=== PATIENT | female | born 1990 | race Caucasian/White ===

== ENCOUNTER 2017-08-15 04:43 | Inpatient (IN) | payer OTHER ==
[~2017-08-15] VITALS: Ht 157.5 cm; Wt 94.0 kg
[~2017-08-15 04:43] MED LIST: DOXYCYCLINE HY100 MG PO; EXPECTA PRENAT1 EACH PO; IBUPROFEN800 MG PO; PERCOCET 5-3251 EACH PO
--- NOTE | 2017-08-15 07:01 | NUR ---
08/15/17 0701 Dasia Bernstein REPORT FROM JUVENILE JUSTICE SPECIALIST.
--- NOTE | 2017-08-16 11:28 | PR ---
[facility] [address] [facility] [place] [address] Signed PP Progress Notes Datetime Report Generated by CPN: 08/16/2017 11:28 SUBJECTIVE: [id number] Pain: Within normal limits Nausea/Vomiting: Denies Vital Signs: [id number] Vital Signs: Reviewed; Within Normal Limits EXAM: [id number] Abdomen/Uterus: Normal Lochia: Normal Extremities: Normal Incision: Normal IMPRESSION/PLAN/PROCEDURES: [id number] Impression: Normal progression Plan: Continue present management Procedures: None Progress Notes: Doing well, moving slowly but up walking in zelaya, tolerating food well. Signing Physician: Iván De La Rosa MD CC: *Electronically Signed* 08/16/17 1128 IVÁN DE LA ROSA MD PATIENT NAME: RASHEED REYNOLDS PROGRESS NOTE DATE OF : [birth year] PHYSICIAN: IVÁN DE LA ROSA MD RPT #: [id number] REPORT IS CONFIDENTIAL AND NOT TO BE RELEASED WITHOUT AUTHORIZATION
== END 2017-08-17 12:50 | disposition home or self-care (01) | DRG 766 ==
LOC: FBCO 04:43 → FBC 05:12
PROVIDERS: ADMIT Obstetrics & Gynecology
PROC: 0UB70ZZ Excision of Bilateral Fallopian Tubes, Open Approach (ICD-10-PCS; 2017-08-15)
PROC: 10D00Z1 Extraction of Products of Conception, Low, Open Approach (ICD-10-PCS; principal; 2017-08-15 05:44)
DX: O34.211 Maternal care for low transverse scar from previous cesarean delivery (principal); Z3A.37 37 weeks gestation of pregnancy; Z37.0 Single live birth; Z30.2 Encounter for sterilization
CPT/HCPCS: 01961; 36415; 83030; 85027; 86850; 86900; 86901; C1763; J0690; J1885; J2274; J2300; J2405; J2550; J2590; J2790; J3010; J7120

== ENCOUNTER 2019-04-14 05:40 | Day surgery (SDC) | payer OTHER ==
[~2019-04-14] VITALS: Ht 157.5 cm; Wt 87.1 kg
--- NOTE | ~2019-04-14 | OR ---
[facility] [address] [place], [place] [address] Draft DATE OF OPERATION: 04/14/2019 SURGEON: Jesi Quarles MD HYDROMETALLURGICAL ENGINEER: Anthony Maxwell MD PREOPERATIVE DIAGNOSES: Pelvic pain, dysmenorrhea and menorrhagia. POSTOPERATIVE DIAGNOSIS: Pelvic pain, dysmenorrhea and menorrhagia with pelvic and abdominal adhesions. PROCEDURES PERFORMED: Total laparoscopic hysterectomy, bilateral salpingectomy, and lysis of adhesions. ANESTHESIA: General ET. ESTIMATED BLOOD LOSS: 100 mL. DRAINS: Ware catheter. INDICATIONS AND FINDINGS: The patient is a 28-year-old female, 4, para 4, status post prior C-sections, who is having increasing issues with menorrhagia, pelvic pain, and dysmenorrhea. The patient has not done well on hormone treatment in the past and requested hysterectomy for treatment of her issues. At the time of surgery, exam under anesthesia revealed a normal-size uterus. There were no adnexal masses. On laparoscopy, there were severe adhesions of the omentum to the anterior abdominal wall as well as the adhesions of the bladder to the anterior cervix. The ovaries appeared normal. She did have evidence of prior tubal ligation. DESCRIPTION OF PROCEDURE: The patient was prepped and draped in the dorsal lithotomy position. A weighted speculum was placed and the anterior lip of the cervix was visualized and grasped with a single-tooth tenaculum. The cavity sounded to 9 cm. The endocervical canal was then dilated and the VCare cannula was placed and the balloon inflated at the fundus. The PATIENT NAME: RASHEED REYNOLDS OPERATIVE REPORT DATE OF : [birth year] REPORT #: [id number] PHYSICIAN: JESI QUARLES MD PCP: RAY WILLIS PAC REPORT IS CONFIDENTIAL AND NOT TO BE RELEASED WITHOUT AUTHORIZATION [facility] [address] [place], [place] [address] Draft tenaculum and speculum were removed and the cup was fitted over the cervix and a locking cap fitted into place as well. Attention was then directed above. The infraumbilical area was injected with 0.5% Marcaine plain. An incision was made with a knife. Each layer was then serially elevated, incised until the fascia was opened and identified. Stay sutures were placed on the fascia. The peritoneum was opened bluntly. The Neeta cannula was then placed and balloon inflated. Placement of the scope confirmed proper positioning. It was immediately apparent that there were significant omental adhesions, particularly on the patient's left side. After inflating the abdomen, it was possible to sweep some of the adhesions toward the center and a clear area was noted on the patient's left side. This area was slightly below the umbilicus far lateral. This area was transilluminated and injected with Marcaine. Incision was made with a knife and a 5 mm port placed under direct vision. The same procedure was carried out on the patient's right side. There were no adhesions noted, however, on this side. This area was transilluminated and injected with Marcaine. Incision was made with a knife. The Veress needle was placed followed by the expanding port. The adhesions were evaluated and it was essential that these be taken down before proceeding with a hysterectomy. Because of the location, a 4th port was placed in the left upper quadrant. This area was again transilluminated and injected with the Marcaine. Incision was made with a knife and the trocar placed under direct vision. This allowed the adhesions to be taken down off the anterior abdominal wall using the LigaSure Maryland device. Following this, the procedure planned could be completed. At this point, the Maryland device was used to serially coagulate and divide the mesosalpinx on the patient's left side. The specimen was removed through the expanding port. Following this, the round ligament as well as the utero-ovarian pedicles were serially coagulated and divided. There were significant adhesions anteriorly and these were taken down gingerly, fairly high on the uterus, but this allowed for creation of a partial bladder flap on the patient's left side. The peritoneum was taken down posteriorly as well. At this point, the uterine vessels could be isolated and were coagulated multiple times and divided. A little bit more dissection was done anteriorly and posteriorly and then attention was directed to the patient's right side. Again, the mesosalpinx was serially coagulated and divided and specimen excised. The patient's round ligament and utero-ovarian pedicle were serially coagulated and divided as well. There was less scarring on the patient's right side. The anterior bladder flap area was created with serially coagulating and dividing this area. This allowed the bladder to drop off the cervix anteriorly. The perineum was taken down posteriorly as well. The uterine vessels were then serially coagulated and divided. Following this, further dissection was done both posteriorly and anteriorly and attention redirected to the patient's left side. Further dissection was done both anteriorly and posteriorly and at this point, the cup could be identified circumferentially. The Sonicision device was then used to remove the specimen from the cuff. It was started posteriorly and dropped around anteriorly to the left and again posteriorly and anteriorly to the right. Following this, the specimen was grasped and the specimens removed as a whole through the vaginal opening. Following this, the PATIENT NAME: RASHEED REYNOLDS OPERATIVE REPORT DATE OF : [birth year] REPORT #: [id number] PHYSICIAN: JESI QUARLES MD PCP: RAY WILLIS PAC REPORT IS CONFIDENTIAL AND NOT TO BE RELEASED WITHOUT AUTHORIZATION [facility] [address] [place], [place] [address] Draft vaginal canal was packed with a glove with a wet lap inside. This allowed for re-creation of the pneumoperitoneum. The pelvis was irrigated and there were few bleeding points posteriorly at the cuff as well as over the surface of the bladder. The spatula tip was used to gently coagulate the bleeders over the bladder flap area. The Maryland device was used to coagulate the posterior cuff. Following this, it was felt that there was good hemostasis and the procedure could be continued. The Endo stitch was then used to close the vaginal cuff. It was begun from the patient's right uterosacral ligament, taking care to incorporate the vaginal mucosa both anteriorly and posteriorly and this was run across to the patient's left uterosacral ligament and then back to the center. Following this, the pelvis was again evaluated and hemostasis was noted. There was some bleeding along the anterior abdominal wall where the omental adhesions were taken down. These were serially coagulated as well. Given the extent of the raw areas, Evicel was used to dribble over the vaginal cuff and the defects on the sidewalls to further aid in hemostasis. The instruments were then removed from the abdomen after allowing as much CO2 as possible to escape. The fascial incision of the umbilicus was reidentified and closed with a running suture of 0 Vicryl. The skin incisions were closed with subcuticular sutures of 3-0 Vicryl Rapide. Attention was directed down below and the vaginal pack was removed. The Ware catheter was removed and cystoscopy was done. The patient had received IV fluorescein. The bladder was thoroughly interrogated. There was no evidence of any injury or sutures present. Both ureteral orifices were identified and clear urine was seen to freely egress from both of these. Following this, the bladder was drained and the Ware catheter replaced. All sponge and needle counts were correct. She tolerated the procedure well and was taken to the recovery room in good condition. MD JOSE Lewis/MODL /[id number] cc: ARIE Inman Copies: VANESA DEXTER PATIENT NAME: RASHEED REYNOLDS OPERATIVE REPORT DATE OF : [birth year] REPORT #: [id number] PHYSICIAN: JESI QUARLES MD PCP: RAY WILLIS [facility] REPORT IS CONFIDENTIAL AND NOT TO BE RELEASED WITHOUT AUTHORIZATION [facility] [address] [place] [address] [place] [address] Draft ~ PATIENT NAME: RASHEED REYNOLDS VICKIE OPERATIVE REPORT DATE OF : [birth year] REPORT #: [id number] PHYSICIAN: JESI QUARLES MD PCP: RAY WILLIS PAC REPORT IS CONFIDENTIAL AND NOT TO BE RELEASED WITHOUT AUTHORIZATION
[~2019-04-14 05:40] MED LIST changes: +MULTIVITAMINS1 EAC8 PO
--- NOTE | 2019-04-14 10:20 | NUR ---
04/14/19 1020 Sheets,Catalina 1012 PT ARRIVED TO PACU ON 6L VIA AMSK, ORAL AIRWAY IN PLACE, CHIN LIFT NEEDED OFF AND ON TO MAINTAIN AIRWAY. RESP EVEN AND UNLABORED. 1015 ORAL AIRWAY REMAINS IN PLACE AND NO CHIN LIFT NEEDED TO MAINTAIN AIRWAY. PT NONAROUSABLE TO PAINFUL STIMULI.
--- NOTE | 2019-04-14 11:05 | NUR ---
PT IS BACK TO FROM PACU. SHE HAS HER EYES CLOSED, BUT WILL ANSWER QUESTIONS APPROPRIATELY. SHE IS REPORTING CRAMPING, RATING IT 9/10 AT THIS TIME. PT'S MOM IS AT THE BEDSIDE. CALL LIGHT WITHIN REACH. SHE TOLERATES A SIP OF WATER. NO ADDITIONAL NEEDS AT THIS TIME.
--- NOTE | 2019-04-14 12:07 | NUR ---
PT REPORTS THAT HER PAIN HAS IMPROVED A LITTLE BIT, SHE ISN'T NAUSEOUS. SHE STATES THAT SHE IS A LITTLE LIGHTHEADED, BUT NOT DIZZY. MOM IS STILL AT THE BEDSIDE. CALL LIGHT WITHIN REACH. NO ADDITIONAL NEEDS AT THIS TIME. WILL COINTUE TO MONITOR.
--- NOTE | 2019-04-14 13:45 | NUR ---
PT AND HER MOM WOULD LIKE TO KNOW WHAT THEY HAVE TO DO TO GET OUT OF HERE. SINCE THE PT IS MORE AWAKE, HER DE ANDA IS REMOVED. 10CC'S OF NS IS REMOVED FROM THE DE ANDA BALLOON. THE DE ANDA IS DC'D WITHOUT ISSUES. THERE IS 400ML'S OF YELLOW URINE IN THE BAG. THE PT ASKS TO GET UP TO USE THE RESTROOM. IT IS RECOMMENDED THAT SHE WAIT FOR AT LEAST A HALF TO ALLOW TIME FOR HER BLADDER TO ACCUMULATE URINE. CALL LIGHT IS WITHIN REACH. NO ADDITIONAL NEEDS AT THIS TIME. WILL CONTINUE TO MONITOR.
--- NOTE | 2019-04-14 14:16 | NUR ---
PT IS HELPED UP OOB TO THE BATHROOM WHERE SHE IS ABLE TO VOID APPROXIMATELY 50MLS OF BLOODY YELLOW URINE. SHE IS EDUCATED THAT IT ISN'T ENOUGH TO MEET DC CRITERIA. SHE WOULD LIKE TO STAY IN THE RESTROOM TO TRY AND HAVE A BM. SHE IS INSTRUCTED TO PULL THE WHITE CORD IF SHE NEEDS ANYTHING.
--- NOTE | 2019-04-14 15:23 | NUR ---
PT RESTING IN BED-ALERT, ORIENTED AND SUPPORTED BY HER MOM CHARU. PT IS SOMEWHAT, ANXIOUS, REQUESTED PRAYER, WILL CONTINUE TO FOLLOW NEEEED
--- NOTE | 2019-04-14 15:29 | NUR ---
1500: PT WOULD LIKE TO GET UP AND USE THE RESTROOM. SHE IS ABLE TO VOID 100MLS OF YELLOW URINE. SHE HAS MET DC CRITERIA AND WOULD LIKE TO GO HOME. SHE IS EDUCATED ON HOW BEST TO DRESS HERSELF AND TO OPEN HER CURTAIN WHEN SHE IS READY. PT AND HER MOM ARE GIVEN VERBAL DC INSTRUCTIONS, THEY BOTH VERBALIZE UNDERSTANDING. PT IS TAKEN TO THE VEHICLE VIA WC WHERE SHE IS ABLE TO TRANSFER HERSELF.
== END 2019-04-14 15:22 | disposition home or self-care (01) ==
LOC: DS 05:40
PROVIDERS: Obstetrics & Gynecology
PROC: 0UT94ZZ Resection of Uterus, Percutaneous Endoscopic Approach (ICD-10-PCS; principal; 2019-04-14 06:45)
PROC: 0UT74ZZ Resection of Bilateral Fallopian Tubes, Percutaneous Endoscopic Approach (ICD-10-PCS; 2019-04-14 06:45)
DX: N87.9 Dysplasia of cervix uteri, unspecified (principal); N88.8 Other specified noninflammatory disorders of cervix uteri; N83.8 Other noninflammatory disorders of ovary, fallopian tube and broad ligament; K66.0 Peritoneal adhesions (postprocedural) (postinfection); N92.1 Excessive and frequent menstruation with irregular cycle; N94.5 Secondary dysmenorrhea; K21.9 Gastro-esophageal reflux disease without esophagitis; Z88.5 Allergy status to narcotic agent; Z91.040 Latex allergy status; Z98.51 Tubal ligation status
CPT/HCPCS: 00840; J1100; J1644; J1885; J2250; J2270; J2405; J2704; J2765; J3475; J7060; J7120

== ENCOUNTER 2023-05-29 05:40 | Day surgery (SDC) | payer OTHER ==
[2023-05-28 14:16] VITALS: BP 112/75
[~2023-05-29] VITALS: Ht 157.5 cm; Wt 90.9 kg
--- NOTE | ~2023-05-29 | OR ---
[facility] [address] [facility] [place], [place] [address] Draft DATE OF OPERATION: 05/29/2023 SURGEON: Aki Xie MD PREOPERATIVE DIAGNOSES: 1. Nasal obstruction. 2. Deviated septum. 3. Turbinate hypertrophy. 4. Snoring. 5. Possible adenoid hypertrophy. POSTOPERATIVE DIAGNOSES: 1. Nasal obstruction. 2. Deviated septum. 3. Turbinate hypertrophy. 4. Snoring. 5. Normal hypertrophy or atrophy of adenoids, but spur or deviation of the septum, left side and turbinate hypertrophy and snoring. PROCEDURES: 1. Nasal septoplasty, [address]. 2. Bilateral submucous resection of inferior turbinates, 81737-93. INDICATIONS: This 32-year-old female has noticed difficulty breathing more at night and seems to have obstruction even up and around during the day and it progresses. She has tried decongestants and nasal steroids and topical decongestants with no real assistance specially alarm she might have the large adenoids, her brother had such a diagnosis made and there is some indication that she may be getting apneic at night, but no formal sleep studies been done. DESCRIPTION OF PROCEDURE: The patient was placed under general anesthesia with an endotracheal intubation. The McIvor mouth gag was inserted first half to open the oral cavity with some retraction done down at the level of tongue, it is obvious that the source of obstruction is the junction between her tonsils, soft palate, uvula, and tongue that was the nasopharyngeal inlet was tightly sealed. Retracting that with looking up above the adenoid tissue was atrophied as it should be at age 32, no need to remove anything, it was not in any way obstructing the airway, so attention was then directed to the septum and the turbinates. The patient has generally PATIENT NAME: RASHEED REYNOLDS OPERATIVE REPORT DATE OF : [birth year] REPORT #: [id number] PHYSICIAN: AKI XIE MD PCP: REBECCA CERDA REPORT IS CONFIDENTIAL AND NOT TO BE RELEASED WITHOUT AUTHORIZATION [facility] [address] [place], [place] [address] Draft small nostrils, small airway on both sides. Significant bony spur on the left side and relative turbinate hypertrophy because of the generalized narrow airway and so around the septal spur on the left side, it was injected with a few mL of 1% lidocaine with 1:200,000 epinephrine. Incision was made and then careful submucoperichondrial and submucoperiosteal dissection was done over that spur both inferiorly and superiorly. that from the cartilage with the sharp end of the Natalie dissection tool, the osteotome was that had a little angulation was used to cut the bony spur down on that nasal septal or maxillary spur that carefully, so it would not tear the mucosa on the underside that was removed back to straighter, plane off airway and the nose flaps were based down with 4-0 chromic. The rest of the obstruction was nasal turbinates. Stab incisions were made anteriorly and the mucoperiosteum was lifted from the turbinate bone medially and laterally with the sharp Natalie dissection tool and broken little pieces, removed from the airway to help lateralize that turbinate on either side. The patient bled profusely during the procedure, but clotted nicely afterwards. Some Telfa was rolled up into cigarette style packs and put into each nostril and then were removed in the recovery room. Estimated blood loss was about 30 mL. No complications were encountered. The patient did well. Aki Xie MD [facility] /[id number] Copies: ~ PATIENT NAME: RASHEED REYNOLDS OPERATIVE REPORT DATE OF : [birth year] REPORT #: [id number] PHYSICIAN: AKI XIE MD PCP: REBECCA CERDA REPORT IS CONFIDENTIAL AND NOT TO BE RELEASED WITHOUT AUTHORIZATION
[~2023-05-29 05:40] MED LIST changes: +BUSPIRONE HCL10 MG PO; +TRAMADOL HCL50 MG PO
[2023-05-29 06:05] VITALS: BP 107/68
[2023-05-29] MEDS ORDERED: CEPHALEXIN500 MG PO (06:11)
--- NOTE | 2023-05-29 07:16 | NUR ---
PT ACCOMPANIED BY SISTER SON AND SON BLANCO. DECLINED PRAYER. GAVE PAGER 11 TO SISTER.
--- NOTE | 2023-05-29 09:07 | NUR ---
05/29/23 0907 Catalina Ibrahim 0849 PT ARRIVED TO PACU ON 6L VIA MASK, RESP EVEN AND UNLABORED. SMALL AMOUNT OF SNORING NOTED. 0850 MD AT BEDSIDE AND PULLED DRESSING FROM NOSTRILS WITH SOME CLOTS NOTED. DRIP PAD REMAINS IN PLACE AND NO DRAINAGE NOTED ON PAD. PT REACTIVE TO TACTILE STIMULI. 0901 PT WAKES AND ABLE TO FOLLOW COMMANDS TO MOVE UP IN BED AND O2 REMOVED. PT NODS "YES" TO PAIN AND THEN EASILY FALLS RIGHT BACK TO SLEEP. 0906 PT WAKES AND RATES PAIN 7/10.
[2023-05-29 09:43] VITALS: BP 101/58
--- NOTE | 2023-05-29 09:55 | NUR ---
LE 0945: PT IS BACK TO DS FROM PACU. SHE IS DROWSY, BUT EASILY AROUSABLE. SHE IS GIVEN WATER AND JELLO. SHE DENIES PAIN AT THIS TIME. SISTER AND SON ARE AT THE BEDSIDE. CALL LIGHT WITHIN REACH. NO ADDITIONAL NEEDS OR CONCERNS AT THIS TIME. DC CRITERIA IS REVIEWED.
--- NOTE | 2023-05-29 10:21 | NUR ---
WAQAS 1015: PT IS ASSISTED UP OOB TO USE THE BATHROOM. SHE IS ABLE TO VOID 100MLS. SHE AMBULATES HERSELF TO AND FROM HER ROOM. SHE WOULD LIKE TO PUT HER OWN CLOTHES ON, SHE IS EDUCATED ON HOW TO BEST DO THAT HERSELF.
--- NOTE | 2023-05-29 10:25 | NUR ---
TYLENOL 3'S CALLED IN AT PT REQUEST PER DR. XIE'S WRITTEN ORDERS.
[2023-05-29 10:40] VITALS: BP 115/64
--- NOTE | 2023-05-29 10:42 | NUR ---
LE 1035: PT IS TOLERATING FLUIDS AND JELLO WITHOUT ISSUE. ONLY COMPLAINT OF PAIN HER THROAT. NO NAUSEA. SHE INDICATES THAT SHE WOULD LIKE TO GO HOME AT THIS TIME.
--- NOTE | 2023-05-29 10:55 | NUR ---
WAQAS 1046: PT AND SISTER ARE GIVEN VERBAL AND WRITTEN DC INSTRUCTIONS. THEY VERBALIZE UNDERSTANDING. QUESTIONS ARE ASKED AND ANSWERED. PT IS TAKEN TO PERSONAL VEHICLE VIA WC.
== END 2023-05-29 10:50 | disposition home or self-care (01) ==
LOC: DS 05:40
PROVIDERS: ATTEND Otolaryngology
PROC: 09BL0ZZ Excision of Nasal Turbinate, Open Approach (ICD-10-PCS; 2023-05-29)
PROC: 09QM0ZZ Repair Nasal Septum, Open Approach (ICD-10-PCS; principal; 2023-05-29 07:30)
DX: J34.2 Deviated nasal septum (principal); J34.3 Hypertrophy of nasal turbinates; J34.89 Other specified disorders of nose and nasal sinuses; R06.83 Snoring; E11.9 Type 2 diabetes mellitus without complications
CPT/HCPCS: 00160; J0131; J1100; J1790; J2250; J2300; J2405; J2704; J3490; J7121

== ENCOUNTER 2024-04-09 00:15 | Emergency (ER) | payer OTHER ==
[~2024-04-09] VITALS: Ht 157.5 cm; Wt 92.0 kg
[~2024-04-09 00:15] MED LIST changes: +CEPHALEXIN500 MG PO
[2024-04-09] MEDS ORDERED: IMITREX25 MG PO (00:27)
[2024-04-09] MEDS ORDERED: AMOXICILLIN500 MG PO (00:55)
[2024-04-09] MEDS ORDERED: DEXAMETHASONE SOD PHOS 10 MG/ML VIAL PO ONE (01:00)
[2024-04-09] MEDS ORDERED: AMOXICILLIN 500 MG CAP PO ONE (01:00)
[2024-04-09 01:10] VITALS: BP 130/88
== END 2024-04-09 01:11 | disposition home or self-care (01) ==
LOC: ED 00:15
DX: H66.91 Otitis media, unspecified, right ear (principal); H69.91 Unspecified Eustachian tube disorder, right ear; Z88.5 Allergy status to narcotic agent; Z91.040 Latex allergy status
CPT/HCPCS: 99282; J1100